=== PATIENT | male | born 1990 | race Caucasian/White ===

== ENCOUNTER 2020-12-07 17:11 | Emergency (ER) | payer MEDICAID ==
[~2020-12-07] VITALS: Ht 188 cm; Wt 113.6 kg
[~2020-12-07 17:11] MED LIST: CEPH-571 PO; DOCU-28 PO; SENN8.6T19 PO
[2020-12-07 18:51] VITALS: BP 171/111
[2020-12-07] MEDS ORDERED: proparacaine 0.5% ophthalmic drops 15ml EACHEYE ONE (20:50)
[2020-12-07] MEDS ORDERED: TOBR5DRO2 LEFTEYE (21:16)
== END 2020-12-07 21:23 | disposition home or self-care (01) ==
LOC: ER 17:12
DX: S05.02XA Injury of conjunctiva and corneal abrasion without foreign body, left eye, initial encounter (principal); Z72.89 Other problems related to lifestyle; Z79.2 Long term (current) use of antibiotics; Z79.899 Other long term (current) drug therapy; W22.8XXA Striking against or struck by other objects, initial encounter; Y93.89 Activity, other specified; Y92.89 Other specified places as the place of occurrence of the external cause; Y99.8 Other external cause status
CPT/HCPCS: 99283